=== PATIENT | male | born 1960 | race Caucasian/White ===

== ENCOUNTER 2022-07-03 08:12 | Outpatient (CLI) | payer BC | END 2022-07-03 08:13 | disposition home or self-care (01) | LOC: TBSIIMAG 08:12 | PROVIDERS: ATTEND Neurological Surgery | DX: M54.2 Cervicalgia (principal); M50.322 Other cervical disc degeneration at C5-C6 level; M47.812 Spondylosis without myelopathy or radiculopathy, cervical region | CPT/HCPCS: 72141 ==

== ENCOUNTER 2022-08-04 07:41 | Outpatient (CLI) | payer BC | END 2022-08-04 07:42 | disposition home or self-care (01) | LOC: TBSIIMAG 07:41 | PROVIDERS: ATTEND Neurological Surgery | DX: M54.50 Low back pain, unspecified (principal); M48.061 Spinal stenosis, lumbar region without neurogenic claudication; M48.07 Spinal stenosis, lumbosacral region; M43.16 Spondylolisthesis, lumbar region; M51.36 Other intervertebral disc degeneration, lumbar region; M25.78 Osteophyte, vertebrae; M51.17 Intervertebral disc disorders with radiculopathy, lumbosacral region; Z98.890 Other specified postprocedural states | CPT/HCPCS: 72148 ==

== ENCOUNTER 2022-10-21 10:23 | Outpatient (CLI) | payer BC | END 2022-10-21 10:24 | disposition home or self-care (01) | LOC: BICRAD 10:23 | PROVIDERS: ATTEND Nurse Practitioner Family | DX: M47.816 Spondylosis without myelopathy or radiculopathy, lumbar region (principal); R29.890 Loss of height; M46.06 Spinal enthesopathy, lumbar region | CPT/HCPCS: 72120 ==